=== PATIENT | female | born 2000 | race Caucasian/White ===

== ENCOUNTER 2023-07-09 13:53 | Emergency (ER) | payer SELFPAY ==
[2023-07-09 14:17] VITALS: BP 122/74; PULSE 74; RESP 18; TEMP 36.8; O2SAT 99; BMI 20.8
--- NOTE | 2023-07-09 14:40 | CRLHL7_ITS ---
For Patients: As a result of the Cures Act, medical imaging exams and procedure reports are released immediately into your electronic medical record. You may view this report before your referring provider. If you have questions, please contact your health care provider. Indication: Injury Technique: A total of three views of the right 5th finger were acquired. Comparison: None Findings: Bones: Alignment is normal. No fractures or bone lesions. Joint spaces: Unremarkable. Soft tissues: Unremarkable. Impression: Normal plain film examination of the right 5th finger Dictated by Bandar Russell MD @ 07/09/2023 4:08:20 PM (Electronically Signed)
--- NOTE | 2023-07-09 14:41 | ED.UPPEXIN ---
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 She states that her finger got kicked and was hyper extended at the MP joint. This was a work related injury so she was told to come in here for evaluation. She does not report any other injury event. She has normal range of motion of her little finger of her right hand. Related Data Home Medications Medication Instructions Recorded Confirmed dextroamphetamine-amphetamine 10 1 tab PO BID 03/13/23 07/09/23 mg tablet etonogestrel 68 mg subdermal 1 implant subdermal ONCE 03/13/23 07/09/23 implant (Nexplanon) Allergies Allergy/AdvReac Type Severity Reaction Status Date / Time No Known Drug Allergies Allergy Verified 07/09/23 14:20 Review of Systems Status of ROS: Reports: 10 or more systems reviewed and unremarkable except as noted in History and below Narrative: Constitutional: No fevers, no weight gain or loss. Eyes: No discharge. No vision changes. HENT: No congestion, no sore throat, no ear pain. Cardiovascular: No chest pain, no palpitations. Respiratory: No shortness of breath, no wheezes, no cough. Gastrointestinal: No abdominal pain, no vomiting, no diarrhea. Genitourinary: No dysuria, no hematuria. Musculoskeletal: Normal range of motion. Skin: No rashes, no pruritis. Neurological: No dizziness, weakness, sensory change, speech change. Endo/Heme/Allergies: No bruising or bleeding. No polydipsia. Pysch: no suicidality, no anxiety, no insomnia. All other systems reviewed and are negative. [facility] Medical History (Updated 07/09/23 @ 15:26 by Donnie Curiel MD) ADHD (attention deficit hyperactivity disorder) ?F90.9 - Attention-deficit hyperactivity disorder, unspecified type (ICD-10) Surgical History History of facial surgery ?Z98.890 - Other specified postprocedural states (ICD-10) Social History Smoking Status: Never smoker Second hand tobacco smoke exposure: No How often do you have a drink containing alcohol: never How often do you have six or more drinks on one occasion: Never AUDIT-C Alcohol total score: 0 Non-prescribed substance use: denies use Little interest or pleasure in doing things: not at all Feeling down, depressed, or hopeless: not at all Exam Narrative: Exam Narrative: Constitutional: Well-developed, well-nourished, no acute distress. HEENT: Normocephalic, atraumatic. Neck: Normal range of motion. Nontender. Supple. Heart: Regular. No murmurs. Normal rate. Intact distal pulses. Lungs: Clear to auscultation. No chest discomfort. No wheezes, rhonchi, or rales. Abdomen: Normal bowel sounds. Nontender. No rebound tenderness. Genitalia: Deferred. Back: No midline tenderness. Normal range of motion. Extremities: Normal range of motion. Diffuse tenderness at the MP joint of the right 5th finger. There is no swelling but there is some mild erythema without any sign of injury to the skin. Skin: Intact. No rash. Warm. No erythema or pallor. Neurologic: No altered sensation. No weakness. Alert and oriented. Psychiatric: No suicidality. No anxiety or depression. No insomnia. Nursing notes and vitals signs are reviewed. Const: Vital Signs, click to edit/add: Vital Signs - 24 hr 07/09/23 14:17 Temperature 98.2 F Pulse Rate [Right Pulse Oximeter] 74 Respiratory Rate 18 Blood Pressure [Ri ght Upper Arm] 122/74 Pulse Oximetry 99 Oxygen Delivery Me thod Room Air Course Vital Signs Vital signs: Initial Vital Signs Temperature 98.2 F 07/09/23 14:17 Temperature Source Temporal Artery Scan 07/09/23 14:17 Pulse Rate 74 07/09/23 14:17 Respiratory Rate 18 07/09/23 14:17 Blood Pressure 122/74 07/09/23 14:17 Blood Pressure Mean 90 07/09/23 14:17 Blood Pressure Position Sitting 07/09/23 14:17 Pulse Oximetry 99 07/09/23 14:17 Oxygen Delivery Method Room Air 07/09/23 14:17 Vital Signs Temperature 98.2 F 07/09/23 14:17 Pulse Rate 74 07/09/23 14:17 Respiratory Rate 18 07/09/23 14:17 Blood Pressure 122/74 07/09/23 14:17 Pulse Oximetry 99 07/09/23 14:17 Oxygen Delivery Method Room Air 07/09/23 14:17 Temperature 98.2 F 07/09/23 14:17 Pulse Rate 74 07/09/23 14:17 Respiratory Rate 18 07/09/23 14:17 Blood Pressure 122/74 07/09/23 14:17 Pulse Oximetry 99 07/09/23 14:17 Oxygen Delivery Method Room Air 07/09/23 14:17 MDM - Extremity Injury (Upper) MDM Narrative Medical decision making narrative: This 23-year-old female has an injury to the MP joint area of her right little finger. This occurred at work so she was to come here for evaluation. X-ray imaging by my review shows no sign of dislocation or fracture. Radiology report is pending. The patient does not have any swelling in has full range of motion of this joint. She did receive a finger splint. Discharge Plan Discharge Clinical Impression: Finger sprain Patient Disposition: Home, Self-Care Condition: Stable Additional Instructions: Wear splint as needed. Increase activity as tolerated. Use [id number] medicines as needed and directed. Follow up with MD return if worsening. Prescriptions: No Action dextroamphetamine-amphetamine 10 mg tablet 1 tab PO BID Nexplanon 68 mg implant 1 implant subdermal ONCE Rx Instructions: as a single dose Follow Up/Referrals: Joey Calderon, GENEVIEVE, ATC, CSCS [Primary Care Provider] - Stand Alone Forms: MyHealth Info Instructions
[2023-07-09 15:40] VITALS: BP 118/70; PULSE 70; RESP 18; TEMP 37; O2SAT 99
[2023-07-09 15:42] VITALS: BP 118/70; PULSE 70; RESP 18; TEMP 37
== END 2023-07-09 15:42 | disposition home or self-care (01) ==
PROVIDERS: Emergency Provider Emergency Medicine Emergency Medical Services
DX: S63.616A Unspecified sprain of right little finger, initial encounter (principal); W22.8XXA Striking against or struck by other objects, initial encounter; Y99.0 Civilian activity done for income or pay
CPT/HCPCS: 29130; 73140; 99283; 99284